=== PATIENT | female | born 1965 | race Caucasian/White ===

== ENCOUNTER 2017-03-03 13:24 | Emergency (ER) | payer BC ==
[2017-03-03 13:25] VITALS: BMI 32.3
[2017-03-03 13:38] VITALS: TEMP 98.9
--- NOTE | 2017-03-03 14:19 | C.PDOC ---
History Of Present Illness 51 y/o female with Hx of Lupus, Herniated Disc and Asthma presents to ED with complaints of lower back pain intermittently for the past 3 years. Pain is described as "dull" and is rated 10/10 in pain. Patient states pain became worse yesterday radiating to buttock and left leg and from upper back radiating to neck and shoulder. Patient took Naproxen this morning for pain with minimum relief and called PMD who advised she visit ED for further evaluation. Patient denies fever, chills, dysuria, hematuria or any other complaints at this time. Time Seen by Provider: 03/03/17 13:42 Chief Complaint (Nursing): Back Pain History Per: Patient History/Exam Limitations: no limitations Onset/Duration Of Symptoms: Days Quality Of Discomfort: Dull Previous Symptoms: Back Pain Past Medical History Reviewed: Historical Data, Nursing Documentation, Vital Signs Vital Signs: Last Vital Signs Temp 98.9 F 03/03/17 13:37 Pulse 80 03/03/17 13:37 Resp 16 03/03/17 13:37 BP 136/84 03/03/17 13:37 Pulse Ox 99 03/03/17 14:24 - Medical History PMH: Asthma, CVA, Hypercholesterolemia Surgical History: Cholecystectomy Family History: States: Unknown Family Hx - Social History Hx Tobacco Use: No Hx Alcohol Use: No Hx Substance Use: No - Immunization History Hx Tetanus Toxoid Vaccination: No Hx Influenza Vaccination: Yes Hx Pneumococcal Vaccination: Yes Review Of Systems Except As Marked, All Systems Reviewed And Found Negative. Constitutional: Negative for: Fever, Chills Gastrointestinal: Negative for: Nausea, Vomiting, Diarrhea Genitourinary: Negative for: Dysuria, Hematuria Musculoskeletal: Positive for: Back Pain Skin: Negative for: Rash Neurological: Negative for: Weakness, Headache Physical Exam - Physical Exam Appears: No Acute Distress Skin: Normal Color, Warm Head: Atraumatic, Normacephalic Oral Mucosa: Moist Back: CVA Tenderness, No Decreased ROM, Paraspinal Tenderness Extremity: Normal ROM Neurological/Psych: Oriented x3, Normal Motor, Normal Sensation Gait: Steady ED Course And Treatment O2 Sat by Pulse Oximetry: 99 (RA) Pulse Ox Interpretation: Normal Medical Decision Making Medical Decision Making: Patient will be teated with Pharmacology for pain and re-evaluated. Patient now sleeping comfortably. Will d/c with pain medication and a short course of steroids in the event the lupus is flaring as well. Disposition Counseled Patient/Family Regarding: Diagnosis, Need For Followup, Rx Given - Disposition Disposition: HOME/ ROUTINE Disposition Time: 16:57 Condition: STABLE Additional Instructions: follow up with your doctor. Take Motrin and Valium together for pain and spasm. Use the tramadol to help you sleep at night. Don't take if working or driving. Prescriptions: diaZEpam [Valium] 5 mg PO HS #5 tab Ibuprofen [Motrin] 600 mg PO TID #24 tab Lidocaine 5% [Lidoderm] 1 ea TD DAILY #3 patch traMADol [Ultram] 50 mg PO TID #12 tab Instructions: Chronic Back Pain (ED) Forms: General Discharge Instructions, Work Excuse - POA Present On Arrival: None - Clinical Impression Clinical Impression: Low back pain - PA / INTERNATIONAL NURSE / Resident Statement MD/DO has reviewed & agrees with the documentation as recorded. MD/DO has examined the patient and agrees with the treatment plan. - Scribe Statement The provider has reviewed the documentation as recorded by the Maribel Dasilva All medical record entries made by the Maribel were at my direction and personally dictated by me. I have reviewed the chart and agree that the record accurately reflects my personal performance of the history, physical exam, medical decision making, and the department course for this patient. I have also personally directed, reviewed, and agree with the discharge instructions and disposition.
[2017-03-03] MEDS ORDERED: Lidocaine 5% Patch TD STA (16:13)
[2017-03-03] MEDS ORDERED: Lidocaine 5% Patch TD ONE (16:20)
[2017-03-03 17:19] VITALS: BP 147/80; PULSE 78; RESP 14; O2SAT 96
== END 2017-03-03 17:18 | disposition home or self-care (01) ==
LOC: C.ER 13:24
DX: M54.5 Low back pain (principal)